=== PATIENT | male | born 1970 | race Caucasian/White ===

== ENCOUNTER → 2020-12-18 | Outpatient (CLI) | payer SELFPAY ==
[~2020-12-18] MED LIST: CATHETER FLUSH 10 ML SYR IV PRN; HOLD METFORMIN - RECEIVED CONTRAST 20 ML VIAL IV SCH; IOHEXOL 350 MG/ML 100 ML (OMNIPAQUE 350) VIAL IV ONE; NS 100 ML (IVPB) BAG IV ONE
[2020-12-18 09:26] LABS: CHLORIDE 107 MMOL/L (98-107); POTASSIUM 4.3 MMOL/L (3.6-5.0); SODIUM 141 MMOL/L (135-145)
[2020-12-18 09:27] LABS: ALANINE AMINOTRANSFERASE 24 U/L (0-55); ALKALINE PHOSPHATASE 77 U/L (40-136); BILIRUBIN,TOTAL 0.6 MG/DL (0.1-1.0); BUN/CREATININE RATIO 19; CALCIUM 9.3 MG/DL (8.5-10.1); CARBON DIOXIDE 24 MMOL/L (21-32); CREATININE SERUM 0.91 MG/DL (0.60-1.30); GFR ESTIMATED > 60; GLUCOSE 100 MG/DL (70-105); TOTAL PROTEIN 7.6 GM/DL (6.4-8.2)
[2020-12-18 09:28] LABS: ALBUMIN 4.4 GM/DL (3.2-4.5)
--- NOTE | 2020-12-18 11:15 | Diagnostic Imaging Report ---
CT CHEST W TECHNIQUE: Multiple contiguous axial images were obtained through the chest with the use of intravenous contrast. All CT scans use one or more of the following dose optimizing techniques: automated exposure control, MA and/or KvP adjustment based on a patient size and exam type, or iterative reconstruction. INDICATION: Pulmonary nodule on outside imaging. COMPARISON: None available. FINDINGS: Lungs and airway: No endoluminal nodule within trachea. No pulmonary mass or consolidation. Scattered bilateral pulmonary nodules are calcified indicative of old granulomatous infection. The largest is in the superior aspect of left lower lobe measuring 7 mm and may be radiographically apparent. All the other nodules are likely radiographically occult due to small size. No pulmonary fibrosis or subpleural reticulations. No bronchiectasis. Pleura: No pleural effusion or pneumothorax. Heart and mediastinum: Thyroid is normal. No supraclavicular or axillary lymphadenopathy. No pathologic enlarged mediastinal or hilar lymph nodes. There are numerous partially calcified mediastinal and hilar lymph nodes further supporting the diagnosis of old granulomatous infection. The heart is normal in size without pericardial effusion. The ascending aorta is mildly ectatic measuring 4.6 cm. Upper abdomen: No abnormality in the visualized portions of the upper abdomen. Musculoskeletal: No concerning focal osseous lesions. IMPRESSION: 1. Old granulomatous infection with numerous calcified pulmonary nodules, as well as mediastinal and hilar lymph nodes. Calcified pulmonary nodules would likely account for a radiographically apparent nodule. Dictated by: Dictated on workstation # [id number]
== END ==
LOC: RAD FS 08:40
PROVIDERS: ATTEND Physician Assistant Surgical
DX: R91.8 Other nonspecific abnormal finding of lung field (principal)
CPT/HCPCS: 36415; 71260; 80053